=== PATIENT | male | born 1965 | race Caucasian/White ===

== ENCOUNTER → 2016-06-03 | Outpatient (REF) | payer MEDICARE, OTHER ==
[2016-06-03 19:06] LABS: ALBUMIN 4.5 GM/DL (3.2-5.2); ALBUMIN/GLOBULIN RATIO 1.29 (1.00-1.93); ALKALINE PHOSPHATASE 120 U/L (45-117); ALT/SGPT 17 U/L (12-78); ANION GAP 6 MEQ/L (8-16); AST/SGOT 20 U/L (15-37); BILIRUBIN,TOTAL 0.4 MG/DL (0.2-1.0); BLOOD UREA NITROGEN 14 MG/DL (7-18); CALCIUM LEVEL 9.6 MG/DL (8.5-10.1); CARBON DIOXIDE LEVEL 29 MEQ/L (21-32); CHLORIDE LEVEL 105 MEQ/L (98-107); CHOLESTEROL LEVEL 214 MG/DL (<200); CREATININE FOR GFR 1.27 MG/DL (0.70-1.30); GLOMERULAR FILTRATION RATE > 60.0 (>56); GLUCOSE, FASTING 95 MG/DL (70-105); POTASSIUM SERUM 4.6 MEQ/L (3.5-5.1); SODIUM LEVEL 140 MEQ/L (136-145); TRIGLYCERIDES LEVEL 88 MG/DL (<150)
[2016-06-07 08:06] LABS: CHLAMYDIA PHARYNGEAL APTIMA Negative (Negative); CHLAMYDIA RECTAL APTIMA Positive (Negative); GC PHARYNGEAL APTIMA Negative (Negative); GC RECTAL APTIMA Negative (Negative)
[2016-06-12 10:15] LABS: %CD3+CD4+CD8+ 1.6 % (Not Estab.); %CD3+CD4-CD8+ 37.8 % (Not Estab.); %CD3+CD4-CD8- 1.4 % (Not Estab.); ABS CD3+CD4+CD8+ 24 /uL (Not Estab.); ABS CD3+CD4+CD8- 285 /uL (Not Estab.); ABS CD3+CD4-CD8+ 567 /uL (Not Estab.); ABS CD3+CD4-CD8- 21 /uL (Not Estab.); Eosinophils 1 % (.); HCT 45.4 % (37.5-51.0); HGB 15.2 g/dL (12.6-17.7); Monocytes 10 % (.); Neutrophils 49 % (.); T PALLIDUM ANTIBODIES Positive (Negative); WBC 3.9 x10E3/uL (3.4-10.8)
== END ==
LOC: M SFHCPLAZ 11:24
PROVIDERS: ATTEND Internal Medicine Infectious Disease
DX: B20 Human immunodeficiency virus [HIV] disease (principal); Z11.3 Encounter for screening for infections with a predominantly sexual mode of transmission; E78.00 Pure hypercholesterolemia, unspecified; Z86.19 Personal history of other infectious and parasitic diseases

== ENCOUNTER 2017-05-25 18:23 | Emergency (ER) | payer SELFPAY, MEDICARE ==
[2017-05-25] MEDS: NS 1,000 ML IV ×2 (19:00→20:44)
[2017-05-25 19:07] LABS: BASO % 0.2 % (0.0-1.0); HEMOGLOBIN 13.7 g/dl (13.5-17.5); IMMATURE GRANULOCYTE % 1.1 % (0-3.0); LYMPH # 0.9 10^3/uL (1.5-4.5); MEAN CORPUSCULAR HEMOGLOBIN 33.3 pg (27.0-33.0); MEAN CORPUSCULAR HGB CONC 34.3 g/dl (32.0-36.5); MEAN CORPUSCULAR VOLUME 97.1 fl (80.0-96.0); MONO # 1.1 10^3/uL (0.0-0.8); MONO % 10.7 % (0.0-5.0); NEUTROPHILS # 7.9 10^3/uL (1.8-7.7); PLATELET COUNT, AUTOMATED 192 10^3/uL (150-450); RED BLOOD COUNT 4.12 10^6/uL (4.30-6.10); RED CELL DISTRIBUTION WIDTH 11.9 % (11.5-14.5); WHITE BLOOD COUNT 10.1 10^3/uL (4.0-10.0)
[2017-05-25] MEDS: ONDANSETRON 4MG/2ML VIAL (J2405) IV (19:11)
[2017-05-25 19:29] LABS: ALBUMIN 3.8 GM/DL (3.2-5.2); ALBUMIN/GLOBULIN RATIO 1.19 (1.00-1.93); ALKALINE PHOSPHATASE 84 U/L (45-117); ALT/SGPT 14 U/L (12-78); ANION GAP 8 MEQ/L (8-16); AST/SGOT 15 U/L (7-37); BILIRUBIN,TOTAL 0.6 MG/DL (0.2-1.0); BLOOD UREA NITROGEN 13 MG/DL (7-18); CALCIUM LEVEL 8.5 MG/DL (8.5-10.1); CARBON DIOXIDE LEVEL 25 MEQ/L (21-32); CHLORIDE LEVEL 104 MEQ/L (98-107); GLOMERULAR FILTRATION RATE 52.5 (>56); GLUCOSE, FASTING 176 MG/DL (70-100); POTASSIUM SERUM 3.5 MEQ/L (3.5-5.1); SODIUM LEVEL 137 MEQ/L (136-145)
[2017-05-25] MEDS ORDERED: MORPHINE 10 MG/ML 1ML VIAL (J2270) IM (19:45)
[2017-05-25] MEDS: MORPHINE 4 MG/ML 1ML VIAL (J2270) IV (19:52)
[2017-05-25] MEDS: ACETAMINOPHEN 325 MG TAB PO (20:30)
[2017-05-25] MEDS: CYCLOBENZAPRINE 10 MG TAB PO (22:43)
== END 2017-05-25 23:13 | disposition home or self-care (01) ==
LOC: M ED 18:23
DX: M54.5 Low back pain (principal); R11.2 Nausea with vomiting, unspecified; R19.7 Diarrhea, unspecified; B20 Human immunodeficiency virus [HIV] disease
CPT/HCPCS: J2270

== ENCOUNTER → 2017-12-01 | Outpatient (REF) | payer MEDICARE, SELFPAY ==
[2017-12-01 14:12] LABS: APPEARANCE, URINE CLEAR (CLEAR); BACTERIA, URINE AUTO NEGATIVE (NEGATIVE); BILIRUBIN, URINE AUTO NEGATIVE (NEGATIVE); BLOOD, URINE BLOOD NEGATIVE (NEGATIVE); COLOR, URINE STRAW (YELLOW); GLUCOSE, URINE (UA) AUTO NEGATIVE (NEGATIVE); KETONE, URINE AUTO NEGATIVE (NEGATIVE); LEUKOCYTE ESTERASE, URINE AUTO NEGATIVE (NEGATIVE); NITRITE, URINE AUTO NEGATIVE (NEGATIVE); PROTEIN, URINE AUTO NEGATIVE (NEGATIVE); RBC, URINE AUTO 0 /HPF (0-3); SPECIFIC GRAVITY URINE AUTO 1.005 (1.002-1.035); SQUAMOUS EPITHELIAL CELL UR AU 0 /HPF (0-6); UROBILINOGEN, URINE AUTO 0.2 mg/dL (0.0-2.0); WBC, URINE AUTO 0 /HPF (0-3)
[2017-12-01 14:43] LABS: ALBUMIN 4.3 GM/DL (3.2-5.2); ALBUMIN/GLOBULIN RATIO 1.34 (1.00-1.93); ALKALINE PHOSPHATASE 88 U/L (45-117); ALT/SGPT 26 U/L (12-78); ANION GAP 7 MEQ/L (8-16); AST/SGOT 20 U/L (7-37); BILIRUBIN,TOTAL 0.5 MG/DL (0.2-1.0); BLOOD UREA NITROGEN 15 MG/DL (7-18); CALCIUM LEVEL 9.4 MG/DL (8.5-10.1); CARBON DIOXIDE LEVEL 28 MEQ/L (21-32); CHLORIDE LEVEL 106 MEQ/L (98-107); CHOLESTEROL LEVEL 222 MG/DL (<200); CHOLESTEROL RISK RATIO 4.625 (<5); CREATININE FOR GFR 1.48 MG/DL (0.70-1.30); GLOMERULAR FILTRATION RATE 53.1 (>56); GLUCOSE, FASTING 87 MG/DL (70-100); HDL CHOLESTEROL 48 MG/DL (>40); LDL CHOLESTEROL 148 MG/DL (<100); NON-HDL-C 174 MG/DL; POTASSIUM SERUM 4.6 MEQ/L (3.5-5.1); SODIUM LEVEL 141 MEQ/L (136-145); TOTAL PROTEIN 7.5 GM/DL (6.4-8.2); TRIGLYCERIDES LEVEL 132 MG/DL (<150)
[2017-12-01 15:31] LABS: HEPATITIS C VIRUS ABY INDEX < 0.0 INDEX (<0.8)
[2017-12-01 15:34] LABS: CHLAMYDIA DNA AMPLIFICATION NEGATIVE (NEGATIVE); GC DNA AMPLIFICATION NEGATIVE (NEGATIVE)
[2017-12-04 00:07] LABS: % CD8 Pos Lymph 42.7 % (12.0-35.5); %CD4 Pos Lymphs 19.2 % (30.8-58.5); ABS Eosinophils 0.1 x10E3/uL (0.0-0.4); ABS Lymphs 1.3 x10E3/uL (0.7-3.1); ABS Monocytes 0.3 x10E3/uL (0.1-0.9); Abs CD4 Helper 250 /uL (359-1519); Abs CD8 Suppres 555 /uL (109-897); CD4/CD8 Ratio 0.45 (0.92-3.72); CHLAMYDIA PHARYNGEAL APTIMA Negative (Negative); Eosinophils 2 % (Not Estab.); GC PHARYNGEAL APTIMA Negative (Negative); HCT 41.2 % (37.5-51.0); HGB 14.3 g/dL (13.0-17.7); HIV-1 RNA PCR QUANT 2 LC550285 <20 copies/mL (.); Immature Grans 0 % (Not Estab.); Lymphocytes 36 % (Not Estab.); MCH 32.9 pg (26.6-33.0); MCHC 34.7 g/dL (31.5-35.7); MCV 95 fL (79-97); Monocytes 9 % (Not Estab.); Neutrophils 53 % (Not Estab.); Platelets 236 x10E3/uL (150-379); RBC 4.35 x10E6/uL (4.14-5.80); RPR Reactive (Non Reactive); TREPONEMA PALLIDUM ANTIBODIES Positive (Negative); WBC 3.7 x10E3/uL (3.4-10.8)
[2017-12-06 08:42] LABS: QUANTIFERON GOLD TB Negative (Negative); TB Test (QFT) Antigen 0.17 IU/mL (.); TB Test (QFT) Antigen Minus Ni <0.00 IU/mL (.); TB Test (QFT) Mitogen 6.93 IU/mL (.); TB Test (QFT) Nil 0.21 IU/mL (.)
== END ==
LOC: M SFHCPLAZ 11:53
DX: B20 Human immunodeficiency virus [HIV] disease (principal); E78.00 Pure hypercholesterolemia, unspecified; Z86.19 Personal history of other infectious and parasitic diseases; K62.82 Dysplasia of anus; Z79.899 Other long term (current) drug therapy; Z23 Encounter for immunization; Z11.3 Encounter for screening for infections with a predominantly sexual mode of transmission
CPT/HCPCS: 80053

== ENCOUNTER 2018-04-11 11:38 | Inpatient (IN) | payer SELFPAY ==
[~2018-04-11] VITALS: Ht 180.3 cm; Wt 77.1 kg
[~2018-04-11 11:38] MED LIST: ACET25TA12 PO; CYCL10TA PO; GENV1TAB PO; PERC5TAB12 PO; ZOFR4TAB14 PO
[2018-04-11] MEDS ORDERED: IBUP-1022 PO (11:47)
[2018-04-11 12:32] LABS: BASO % 0.2 % (0.0-1.0); EOS % 0.2 % (0.0-3.0); HEMATOCRIT 37.7 % (42.0-52.0); HEMOGLOBIN 12.5 g/dl (13.5-17.5); LYMPH # 1.3 10^3/uL (1.5-4.5); MEAN CORPUSCULAR HEMOGLOBIN 33.3 pg (27.0-33.0); MEAN CORPUSCULAR HGB CONC 33.2 g/dl (32.0-36.5); MEAN CORPUSCULAR VOLUME 100.5 fl (80.0-96.0); MONO # 0.8 10^3/uL (0.0-0.8); MONO % 8.6 % (0.0-5.0); NEUTROPHILS # 6.9 10^3/uL (1.8-7.7); NEUTROPHILS % 76.6 % (36.0-66.0); PLATELET COUNT, AUTOMATED 241 10^3/uL (150-450); RED BLOOD COUNT 3.75 10^6/uL (4.30-6.10)
[2018-04-11 12:47] LABS: INR 1.05; PROTHROMBIN TIME 13.8 SECONDS (12.1-14.4)
[2018-04-11 12:48] LABS: PARTIAL THROMBOPLASTIN TIME 36.7 SECONDS (25.4-37.6)
[2018-04-11 13:14] LABS: ALBUMIN 3.2 GM/DL (3.2-5.2); ALT/SGPT 30 U/L (12-78); BILIRUBIN,DIRECT 0.2 MG/DL (0.0-0.2); BILIRUBIN,TOTAL 0.5 MG/DL (0.2-1.0); BLOOD UREA NITROGEN 10 MG/DL (7-18); CALCIUM LEVEL 8.4 MG/DL (8.5-10.1); CARBON DIOXIDE LEVEL 27 MEQ/L (21-32); CHLORIDE LEVEL 102 MEQ/L (98-107); CK-MB VALUE MASS < 1.0 NG/ML (<3.6); CPK CREATINE PHOSPHOKINASE 27 U/L (39-308); CREATININE FOR GFR 1.36 MG/DL (0.70-1.30); FREE T4 0.92 NG/DL (0.76-1.46); GLOMERULAR FILTRATION RATE 58.6 (>56); GLUCOSE, FASTING 106 MG/DL (70-100); POTASSIUM SERUM 4.4 MEQ/L (3.5-5.1); SODIUM LEVEL 135 MEQ/L (136-145); THYROID STIMULATING HORMONE 0.622 uIU/ML (0.358-3.740); TOTAL PROTEIN 7.3 GM/DL (6.4-8.2); TROPONIN I < 0.02 NG/ML (< 0.10)
[2018-04-11] MEDS ORDERED: NS 1,000 ML IV SCH (13:15)
[2018-04-11] MEDS ORDERED: ACETAMINOPHEN TAB 650MG DOSE (2X325MG) PO ONE (13:15)
[2018-04-11 13:25] LABS: MONO SCRN NEGATIVE (NEGATIVE)
[2018-04-11] MEDS ORDERED: ONDANSETRON 4MG/2ML VIAL (J2405) IV ONE (13:30)
[2018-04-11] MEDS: GASTROGRAFIN SOLUTION 30ML PO SCH ×2 (13:30→14:00)
[2018-04-11 13:33] LABS: LIPASE 210 U/L (73-393)
[2018-04-11 14:25] LABS: INFLUENZA A AMPLIFICATION NEGATIVE (NEGATIVE); INFLUENZA B AMPLIFICATION NEGATIVE (NEGATIVE)
[2018-04-11] MEDS ORDERED: ISOVUE-370 76% 100ML VIAL (Q9967) As Ordered ONE (14:41)
[2018-04-11] MEDS ORDERED: METOCLOPRAMIDE INJ 10MG/2ML VIAL (J2765) IV ONE (17:00)
[2018-04-11] MEDS ORDERED: CIPROFLOXACIN 400 MG in APPROPRIATE DILUENT 1 EA IV ONE (17:30)
[2018-04-11] MEDS ORDERED: metroNIDAZOLE 500 MG in APPROPRIATE DILUENT 1 EA IV ONE (17:30)
[2018-04-11] MEDS ORDERED: ONDANSETRON 4MG/2ML VIAL (J2405) IV PRN (18:15)
--- NOTE | 2018-04-11 20:05 | HPE ---
DATE OF ADMISSION: 04/11/2018 This is a 52-year-old male with a past medical history of HIV diagnosed in 2005, history of Kaposi sarcoma, who presents to the emergency room with left upper quadrant and right lower quadrant abdominal pain for approximately 2 weeks. No associated diarrhea but he did have nausea with no vomiting. He has never had similar symptoms in the past. He does have HIV and his last CD4 was in November and was 600, followed by Dr. Lozano. In the emergency room, the patient was given IV Zofran and had a CT of the abdomen and pelvis done, which showed right colonic and transverse colonic colitis. He was started on IV Cipro and IV Flagyl. He will be admitted for further management. He denies any subjective feeling of fever, aches or chills. PAST MEDICAL HISTORY: 1. HIV diagnosed in 2005. 2. History of Kaposi sarcoma. 3. Chronic kidney disease stage IIIA with baseline creatinine of 1.4. ALLERGIES: He has no known drug allergies. FAMILY HISTORY: Noncontributory. SOCIAL HISTORY: The patient denies tobacco, alcohol or illicit drugs. MEDICATIONS: He takes at home: - ibuprofen 600 mg by mouth three times a day as needed - Genvoya one tablet by mouth daily REVIEW OF SYSTEMS: Negative for all ten major systems except what is mentioned in the history of present illness. VITAL SIGNS: Blood pressure 121/79, heart rate is 100 and regular, respiratory rate 14, temperature 99.6, oxygen saturation 95% on room air. Head is atraumatic, normocephalic. Neck is supple with no jugular venous distention (JVD). Lungs are clear to auscultation. S1, S2 audible. No murmurs appreciated. Abdomen has positive tenderness and guarding in the right upper quadrant and left lower quadrant. No rebound. Positive bowel sounds. No pedal edema. Skin is intact. Neurologic examination, the patient is awake, alert and oriented times three. LABORATORIES: Sodium 135, potassium 4.4, chloride 102, CO2 of 27, anion gap 6, BUN 10, creatinine 1.36, glucose 106, calcium 8.4, lipase 210, TSH 0.622. Urinalysis is negative for urinary tract infection (UTI). Influenza A and B screens negative. IMPRESSION: 1. Acute colitis. PLAN: The patient is admitted to the medical/surgical floor. We will start him on a clear liquid diet and continue IV Zofran 4 mg every 6 hours as needed and morphine 2 mg IV every 6 hours as needed for symptomatic relief. I will continue IV Ciprofloxacin 400 mg IV every 12 hours and Flagyl 500 mg IV every 8 hours. The patient can continue his Genvoya as prescribed from home. We will continue his care in the medical/surgical floor.
[2018-04-11] MEDS: NS 1,000 ML IV SCH (20:12)
[2018-04-11] MEDS: IBUPROFEN 600 MG TAB PO PRN (20:13)
[2018-04-11 20:58] VITALS: BP 129/73
[2018-04-11] MEDS: MORPHINE 4 MG/ML 1ML VIAL/SYRINGE (J2270) IV PRN (22:56)
[2018-04-12] MEDS: metroNIDAZOLE 500 MG in APPROPRIATE DILUENT 1 EA IV SCH ×3 (02:09→17:39)
[2018-04-12 04:04] VITALS: BP 101/63
[2018-04-12] MEDS: NS 1,000 ML IV SCH ×2 (04:11→10:10)
--- NOTE | 2018-04-12 07:40 | REP ---
CT ANGIOGRAM CHEST: 04/11/2018 COMPARISON: CT chest 09/23/2007. CLINICAL HISTORY: Chest pain, cough, sinus tachycardia, recent travel. Evaluate for pulmonary emboli. Past history Kaposi's sarcoma. TECHNIQUE: Patient received bolus of 100 mL Isovue 370, scanning through the chest with CT angiogram protocol and both coronal and sagittal thick-slab MIP and standard reformats. FINDINGS: Heart size not enlarged. There is no pericardial thickening or effusion. The aorta is without aneurysm or dissection. The main, right, and left pulmonary arteries are without filling defects in the mediastinum. The lobar, segmental and visible subsegmental arteries are without filling defects or vessel cutoff to suggest pulmonary emboli. There is no pathologic-sized mediastinal or hilar adenopathy. There is a 10 mm nodular focus in the posterior segment of the left upper lobe on image 32, and this is only minimally changed from the previous study where it was 11.5 mm. Some underlying interstitial fibrotic changes are seen. Heavier fibrotic changes are noted in the bases with new superimposed bibasilar deep sulcus patchy areas of atelectasis or infiltrates. No pleural effusion, pleural-based mass, focal pleural thickening, or calcified plaque. Bone windows show the sternum, manubrium, medial clavicles, AC joints, glenohumeral joints, humeral heads, scapulae, and ribs grossly intact. The spine shows no fracture or compression deformity nor any destructive lesion. Minimal spurring anteriorly midthoracic region. IMPRESSION: 1. No CT evidence of pulmonary thromboembolism. No aortic aneurysm, dissection, mediastinal or hilar adenopathy, or mass. 2. New patchy atelectasis or infiltrate bilaterally in the lower lung zones particularly in the deep sulci without air bronchograms or pleural effusion. This is superimposed on some minor fibrotic changes, and there is a 10 mm nodule in the posterior segment left upper lobe which is seen on the previous study in 2008 at about 11.5 mm. No other new or acute finding in the lungs. 3. No acute bony finding. No axillary or supraclavicular adenopathy or mass. Electronically Signed by Adolph Resendez MD 04/12/2018 08:22 A
--- NOTE | 2018-04-12 07:45 | REP ---
CT ABDOMEN/PELVIS WITH IV AND ORAL CONTRAST: 04/11/2018. CLINICAL HISTORY: Abdominal pain. Prior history of Kaposi's sarcoma. COMPARISON: 09/23/2007 CT. TECHNIQUE: Oral Gastrografin mixture 10 mL in 290 mL flavored water for two doses per our bowel contrast protocol and a bolus of 100 mL Isovue 370, then scanning through the abdomen and pelvis. Coronal and sagittal reconstructions were provided. FINDINGS: CT ABDOMEN. No hiatal hernia. Stomach filled with retained contrast. I see no hepatosplenomegaly, focal hepatic mass, or intrahepatic biliary dilatation. Gallbladder partially contracted and without calcified stone or mass. Pancreas without mass, ductal dilatation, or inflammatory change, and the adrenal glands are normal. Kidneys without hydronephrosis, stone, mass, or cyst. Spleen is without focal lesion. No ascites upper abdomen. Lung window review of all CT slices shows no perforation or abscess. Slight distension of proximal jejunal loops in the upper abdomen. There is some thickening of wall of mid jejunal loops and some infiltration of fat about the transverse colon. There is thickening of wall of the right, transverse colon, and hepatic flexure suggesting colitis. Moderate stool in the left colon to rectosigmoid distending them. No diverticulosis or diverticulitis suggested. A short appendix is suggested off the posterior-medial aspect of the distal cecal tip. The ileum shows no dilatation, wall thickening, or air-fluid levels. Terminal ilium unremarkable. Lung window review of all CT slices shows no perforation or free air. Bone windows show degenerative disc changes and narrowing at L5-S1 with vacuum phenomena at L4-5, a few millimeters of retrolisthesis of L4 on 5, while the other disc space and all vertebral body heights are intact in the lumbar and lower thoracic spine. Posterior elements preserved. Visualized ribs intact. CT PELVIS: Sacrum, SI joints, pelvis, hips, and ischia show no fracture or focal lesion. There is no distal ureteral dilatation or stone and no bladder stone. No ventral or inguinal hernia nor pathologic sized inguinal adenopathy. IMPRESSION: 1. Evidence of colitis involving the right and transverse colon with thickening of bowel wall and mild inflammatory changes in the fat. A caliber change just below the splenic flexure with the left colon to rectosigmoid distended with stool. No diverticulosis or diverticulitis. No mass or stricture. 2. Some small bowel loops in the proximal jejunum with thickened aquino and minor adjacent inflammatory changes and reflect some nonspecific enteritis. Proximal to these loops, there is mild distension of small bowel loops. 3. Gallbladder contracted without calcified stone or mass. The liver, spleen, adrenal glands, kidneys, and pancreas unremarkable. 4. No abdominal or pelvic adenopathy. No acute bony finding. No renal, ureteral, or bladder stone. Electronically Signed by Adolph Resendez MD 04/12/2018 08:22 A
[2018-04-12 07:46] LABS: BASO % 0.2 % (0.0-1.0); EOS # 0.1 10^3/uL (0.0-0.50); EOS % 1.9 % (0.0-3.0); HEMATOCRIT 34.5 % (42.0-52.0); HEMOGLOBIN 11.2 g/dl (13.5-17.5); LYMPH # 0.7 10^3/uL (1.5-4.5); LYMPH % 12.3 % (24.0-44.0); MEAN CORPUSCULAR HEMOGLOBIN 33.1 pg (27.0-33.0); MEAN CORPUSCULAR HGB CONC 32.5 g/dl (32.0-36.5); MEAN CORPUSCULAR VOLUME 102.1 fl (80.0-96.0); MONO # 0.7 10^3/uL (0.0-0.8); MONO % 11.8 % (0.0-5.0); NEUTROPHILS # 4.2 10^3/uL (1.8-7.7); NEUTROPHILS % 73.3 % (36.0-66.0); PLATELET COUNT, AUTOMATED 186 10^3/uL (150-450); RED BLOOD COUNT 3.38 10^6/uL (4.30-6.10); WHITE BLOOD COUNT 5.8 10^3/uL (4.0-10.0)
[2018-04-12 08:00] VITALS: BP 119/71
[2018-04-12 08:03] LABS: BLOOD UREA NITROGEN 11 MG/DL (7-18); CALCIUM LEVEL 8.1 MG/DL (8.5-10.1); CARBON DIOXIDE LEVEL 28 MEQ/L (21-32); CHLORIDE LEVEL 107 MEQ/L (98-107); CREATININE FOR GFR 1.04 MG/DL (0.70-1.30); GLOMERULAR FILTRATION RATE > 60.0 (>56); GLUCOSE, FASTING 103 MG/DL (70-100); POTASSIUM SERUM 4.2 MEQ/L (3.5-5.1); SODIUM LEVEL 140 MEQ/L (136-145)
[2018-04-12] MEDS: CIPROFLOXACIN 400 MG in APPROPRIATE DILUENT 1 EA IV SCH ×2 (08:52→19:42)
[2018-04-12] MEDS: MORPHINE 4 MG/ML 1ML VIAL/SYRINGE (J2270) IV PRN ×3 (09:01→19:42)
[2018-04-12] MEDS: IBUPROFEN 600 MG TAB PO PRN (09:02)
[2018-04-12 14:00] VITALS: BP 133/84
--- NOTE | 2018-04-12 16:24 | ECGEPIP ---
Stationary ECG Study [facility] - ED Test Date: 2018-04-11 Pat Name: SHANTE KATZ Department: Room: [place] [address] Gender: M Digital Media Director: NITO : 1965 Requested By: FELIX Borges Order Number: [id number] Reading MD: Maura Gibbs Measurements Intervals Tolar Rate: 102 P: 18 OR: 149 QRS: 46 QRSD: 88 T: 50 QT: 314 QTc: 410 Interpretive Statements SINUS TACHYCARDIA ABNORMAL RHYTHM ECG NO PRIOR FOR COMPARISON Electronically Signed On 04-12-2018 16:24:36 EST by Maura Gibbs
[2018-04-12] MEDS: GENVOYA PO SCH (17:39)
[2018-04-12 20:00] VITALS: BP 131/86
--- NOTE | 2018-04-12 23:31 | IPNPDOC ---
Text Note Date of Service The patient was seen on 04/12/18. NOTE SUBJECTIVE: continues to have abdominal soreness extending from the right to left along the upper abdomen. the right lower quadrant is also painful. No diarrhea, complains of feeling generalized unwell, maliase, has been unable to eat food since . Able to tolerate clear liquids, no vomiting. Is requiring morphine. Had a temp of 101.9 on admission. PHYSICAL EXAM: VITAL SIGNS: As below General: awake alert oriented x 3 sitting up in bed in no acute distress. HEENT: Head is atraumatic, normocephalic. Neck is supple with no jugular venous distention (JVD). Lungs: clear to auscultation. Heart: S1, S2 audible. No murmurs appreciated.No rub or gallop Abdomen: positive tenderness in the right upper quadrant , epigastrium and left upper quadrant and right lower quadrant. Rebound tenderness present. Guarding in the RUQ. Positive bowel sounds. Extremities: No pedal edema. Skin is intact. Neurologic examination: no focal neurodeficits. LABS and RADIOLOGY: reviewed ASSESSMENT and PLAN: This is a 52-year-old male with a past medical history of HIV/AIDS diagnosed in 2005 CD4 < 20, history of Disseminated Kaposi sarcoma s/p chemotherapy, oral Kaposi's sarcoma s/p RT, h/o shingles left sciatic nerve distribution, Esophageal reflux, Secondary syphilis, CKD who presents to the emergency room with severe abdominal pain, bilateral flank pain , unable to eat and generalized malaise. He has been sick for 2 weeks. He was recently hospitalized in [place] 12 days ago for 1 day for fever, cough, malaise, bodyaches, abdominal pain, nausea daignosed with pneumonia and given antibiotics. He signed out AMA after 1 day as his father wanted to bring him up here where all his family is. He was given cefdinir and bactrim ds for 5 days for pneumonia. He felt better after that for a week he did not have any complaints then the abdominal pain came back 4 days ago. No associated diarrhea but he did have nausea with no vomiting. He has never had similar symptoms in the past. His last CD4 was in November and was 600, followed by Dr. Lozano. In the emergency room, the patient was given IV Zofran and had a CT of the abdomen and pelvis done, which showed right colonic and transverse colonic colitis. He was started on IV Cipro and IV Flagyl. He was admitted for further management. Acute Colitis continue cipro and flagyl continue IVF HIV continue own medication CKD stage 3 creatinine at baseline continue to monitor. DVT prophylaxis ordered. VS,Fishbone, I+O VS, Fishbone, I+O Laboratory Tests 04/11/18 12:14 Red Blood Count 3.75 L, Mean Corpuscular Volume 100.5 H, Mean Corpuscular Hemoglobin 33.3 H, Mean Corpuscular Hemoglobin Concent 33.2, Red Cell Distribution Width 13.2, Neutrophils (%) (Auto) 76.6 H, Lymphocytes (%) (Auto) 14.0 L, Monocytes (%) (Auto) 8.6 H, Eosinophils (%) (Auto) 0.2, Basophils (%) (Auto) 0.2, Neutrophils # (Auto) 6.9, Lymphocytes # (Auto) 1.3 L, Monocytes # (Auto) 0.8, Eosinophils # (Auto) 0.0, Basophils # (Auto) 0.0 Vital Signs Date Time Temp Pulse Resp B/P (MAP) Pulse Ox O2 Delivery O2 Flow Rate FiO2 04/11/18 23:06 18 04/11/18 20:58 98.9 80 129/73 (91) 96 04/11/18 20:15 Room Air I&O- Last 24 Hours up to 6 AM 04/12/18 06:00 Intake Total 1360 ml Output Total 650 ml Balance 710 ml MUKUND GOLDSMITH MD Apr 12, 2018 02:33
[2018-04-13] MEDS: MORPHINE 4 MG/ML 1ML VIAL/SYRINGE (J2270) IV PRN ×3 (00:09→09:25)
[2018-04-13] MEDS: NS 1,000 ML IV SCH ×3 (00:09→13:10)
[2018-04-13] MEDS: metroNIDAZOLE 500 MG in APPROPRIATE DILUENT 1 EA IV SCH ×3 (02:14→18:10)
[2018-04-13 04:00] VITALS: BP 117/71
[2018-04-13 07:05] LABS: BASO % 0.3 % (0.0-1.0); EOS # 0.3 10^3/uL (0.0-0.50); EOS % 6.9 % (0.0-3.0); HEMATOCRIT 31.8 % (42.0-52.0); HEMOGLOBIN 10.5 g/dl (13.5-17.5); LYMPH # 1.2 10^3/uL (1.5-4.5); LYMPH % 29.2 % (24.0-44.0); MEAN CORPUSCULAR HEMOGLOBIN 33.1 pg (27.0-33.0); MEAN CORPUSCULAR VOLUME 100.3 fl (80.0-96.0); MONO # 0.5 10^3/uL (0.0-0.8); MONO % 12.2 % (0.0-5.0); NEUTROPHILS % 51.1 % (36.0-66.0); PLATELET COUNT, AUTOMATED 191 10^3/uL (150-450); RED BLOOD COUNT 3.17 10^6/uL (4.30-6.10); WHITE BLOOD COUNT 3.9 10^3/uL (4.0-10.0)
[2018-04-13 07:29] LABS: BLOOD UREA NITROGEN 7 MG/DL (7-18); CALCIUM LEVEL 7.9 MG/DL (8.5-10.1); CARBON DIOXIDE LEVEL 27 MEQ/L (21-32); CHLORIDE LEVEL 107 MEQ/L (98-107); CREATININE FOR GFR 1.05 MG/DL (0.70-1.30); GLOMERULAR FILTRATION RATE > 60.0 (>56); GLUCOSE, FASTING 93 MG/DL (70-100); POTASSIUM SERUM 3.9 MEQ/L (3.5-5.1); SODIUM LEVEL 139 MEQ/L (136-145)
[2018-04-13] MEDS: CIPROFLOXACIN 400 MG in APPROPRIATE DILUENT 1 EA IV SCH ×2 (08:20→20:25)
[2018-04-13 14:00] VITALS: BP 125/83
[2018-04-13] MEDS: IBUPROFEN 600 MG TAB PO PRN ×2 (14:06→21:29)
[2018-04-13] MEDS: GENVOYA PO SCH (18:10)
[2018-04-13 20:00] VITALS: BP 122/73
--- NOTE | 2018-04-13 23:21 | IPNPDOC ---
Text Note Date of Service The patient was seen on 04/13/18. NOTE SUBJECTIVE: continues to have abdominal soreness extending from the right to left along the upper abdomen. the right lower quadrant is also painful. No diarrhea, complains of feeling generalized unwell, maliase, has been unable to eat food since . Able to tolerate clear liquids, no vomiting. Is requiring morphine. Had a temp of 101.9 on admission. PHYSICAL EXAM: VITAL SIGNS: As below General: awake alert oriented x 3 sitting up in bed in no acute distress. HEENT: Head is atraumatic, normocephalic. Neck is supple with no jugular venous distention (JVD). Lungs: clear to auscultation. Heart: S1, S2 audible. No murmurs appreciated.No rub or gallop Abdomen: positive tenderness in the right upper quadrant , epigastrium and left upper quadrant and right lower quadrant. Rebound tenderness present. Guarding in the RUQ. Positive bowel sounds. Extremities: No pedal edema. Skin is intact. Neurologic examination: no focal neurodeficits. LABS and RADIOLOGY: reviewed ASSESSMENT and PLAN: This is a 52-year-old male with a past medical history of HIV/AIDS diagnosed in 2005 CD4 < 20, history of Disseminated Kaposi sarcoma s/p chemotherapy, oral Kaposi's sarcoma s/p RT, h/o shingles left sciatic nerve distribution, Esophageal reflux, Secondary syphilis, CKD who presents to the emergency room with severe abdominal pain, bilateral flank pain , unable to eat and generalized malaise. He has been sick for 2 weeks. He was recently hospitalized in [place] 12 days ago for 1 day for fever, cough, malaise, bodyaches, abdominal pain, nausea daignosed with pneumonia and given antibiotics. He signed out AMA after 1 day as his father wanted to bring him up here where all his family is. He was given cefdinir and bactrim ds for 5 days for pneumonia. He felt better after that for a week he did not have any complaints then the abdominal pain came back 4 days ago. No associated diarrhea but he did have nausea with no vomiting. He has never had similar symptoms in the past. His last CD4 was in November and was 600, followed by Dr. Lozano. In the emergency room, the patient was given IV Zofran and had a CT of the abdomen and pelvis done, which showed right colonic and transverse colonic colitis. He was started on IV Cipro and IV Flagyl. He was admitted for further management. Acute Colitis continue cipro and flagyl continue IVF HIV continue own medication CKD stage 3 creatinine at baseline continue to monitor. DVT prophylaxis ordered. VS,Fishbone, I+O VS, Fishbone, I+O Laboratory Tests 04/13/18 06:49 Red Blood Count 3.17 L, Mean Corpuscular Volume 100.3 H, Mean Corpuscular Hemoglobin 33.1 H, Mean Corpuscular Hemoglobin Concent 33.0, Red Cell Distribution Width 12.9, Neutrophils (%) (Auto) 51.1, Lymphocytes (%) (Auto) 29.2, Monocytes (%) (Auto) 12.2 H, Eosinophils (%) (Auto) 6.9 H, Basophils (%) (Auto) 0.3, Neutrophils # (Auto) 2.0, Lymphocytes # (Auto) 1.2 L, Monocytes # (Auto) 0.5, Eosinophils # (Auto) 0.3, Basophils # (Auto) 0.0, Calcium Level 7.9 L Vital Signs Date Time Temp Pulse Resp B/P (MAP) Pulse Ox O2 Delivery O2 Flow Rate FiO2 04/13/18 14:00 98.2 78 15 125/83 (97) 98 04/11/18 20:15 Room Air I&O- Last 24 Hours up to 6 AM 04/13/18 06:00 Intake Total 2360 ml Output Total 0 ml Balance 2360 ml MUKUND GOLDSMITH MD Apr 13, 2018 23:21
[2018-04-14] MEDS: metroNIDAZOLE 500 MG in APPROPRIATE DILUENT 1 EA IV SCH ×2 (01:09→10:59)
[2018-04-14] MEDS: NS 1,000 ML IV SCH (01:09)
[2018-04-14 07:31] LABS: BASO % 0.8 % (0.0-1.0); EOS # 0.4 10^3/uL (0.0-0.50); EOS % 16.2 % (0.0-3.0); HEMATOCRIT 32.8 % (42.0-52.0); HEMOGLOBIN 10.8 g/dl (13.5-17.5); LYMPH # 0.8 10^3/uL (1.5-4.5); LYMPH % 32.4 % (24.0-44.0); MEAN CORPUSCULAR HEMOGLOBIN 32.9 pg (27.0-33.0); MEAN CORPUSCULAR HGB CONC 32.9 g/dl (32.0-36.5); MONO # 0.3 10^3/uL (0.0-0.8); MONO % 13.4 % (0.0-5.0); NEUTROPHILS % 36.8 % (36.0-66.0); PLATELET COUNT, AUTOMATED 191 10^3/uL (150-450); RED BLOOD COUNT 3.28 10^6/uL (4.30-6.10); WHITE BLOOD COUNT 2.5 10^3/uL (4.0-10.0)
[2018-04-14 07:52] LABS: BLOOD UREA NITROGEN 8 MG/DL (7-18); CALCIUM LEVEL 8.4 MG/DL (8.5-10.1); CARBON DIOXIDE LEVEL 25 MEQ/L (21-32); CHLORIDE LEVEL 110 MEQ/L (98-107); CREATININE FOR GFR 1.05 MG/DL (0.70-1.30); GLOMERULAR FILTRATION RATE > 60.0 (>56); GLUCOSE, FASTING 105 MG/DL (70-100); POTASSIUM SERUM 3.7 MEQ/L (3.5-5.1); SODIUM LEVEL 141 MEQ/L (136-145)
[2018-04-14 08:15] LABS: NEUTROPHILS # 0.9 10^3/uL (1.8-7.7)
[2018-04-14] MEDS: CIPROFLOXACIN 400 MG in APPROPRIATE DILUENT 1 EA IV SCH (08:38)
[2018-04-14] MEDS: IBUPROFEN 600 MG TAB PO PRN (08:40)
--- NOTE | 2018-04-14 09:58 | IPNPDOC ---
Date Seen The patient was seen on 04/14/18. Progress Note SUBJECTIVE: no diarrhea no abd pain nausea of vomiting. tolerating liquid diet, anxious to go home, but c/o headache in the occiput. no c/o blurred vision,diplopia, aura, or weakness. on ivfluids. PHYSICAL EXAM: VITAL SIGNS: As below General: awake alert oriented x 3 sitting up in bed in no acute distress. HEENT: Head is atraumatic, normocephalic. Neck is supple with no jugular venous distention (JVD). Lungs: clear to auscultation. Heart: S1, S2 audible. No murmurs appreciated.No rub or gallop Abdomen: positive tenderness in the right upper quadrant , epigastrium and left upper quadrant and right lower quadrant. Rebound tenderness present. Guarding in the RUQ. Positive bowel sounds. Extremities: No pedal edema. Skin is intact. Neurologic examination: no focal neurodeficits. LABS and RADIOLOGY: reviewed ASSESSMENT and PLAN: This is a 52-year-old male with a past medical history of HIV/AIDS diagnosed in 2005 CD4 < 20, history of Disseminated Kaposi sarcoma s/p chemotherapy, oral Kaposi's sarcoma s/p RT, h/o shingles left sciatic nerve distribution, Esophageal reflux, Secondary syphilis, CKD who presents to the emergency room with severe abdominal pain, bilateral flank pain , unable to eat and generalized malaise. He has been sick for 2 weeks. He was recently hospitalized in [place] 12 days ago for 1 day for fever, cough, malaise, bodyaches, abdominal pain, nausea daignosed with pneumonia and given antibiotics. He signed out AMA after 1 day as his father wanted to bring him up here where all his family is. He was given cefdinir and bactrim ds for 5 days for pneumonia. He felt better after that for a week he did not have any complaints then the abdominal pain came back 4 days ago. No associated diarrhea but he did have nausea with no vomiting. He has never had similar symptoms in the past. His last CD4 was in November and was 600, followed by Dr. Lozano. In the emergency room, the patient was given IV Zofran and had a CT of the abdomen and pelvis done, which showed right colonic and transverse colonic colitis. He was started on IV Cipro and IV Flagyl. He was admitted for further management. Acute Colitis continue cipro and flagyl continue IVF advance to low residue diet Headache trial of nsaids and iv reglan HIV continue own medication CKD stage 3 creatinine at baseline continue to monitor. DVT prophylaxis ordered. disposition: dc home today or in am pending tolerance of solid diet. VS, I&O, 24H, Fishbone Vital Signs/I&O Vital Signs Date Time Temp Pulse Resp B/P (MAP) Pulse Ox O2 Delivery O2 Flow Rate FiO2 04/13/18 20:00 98.2 79 18 122/73 (89) 97 04/11/18 20:15 Room Air I&O- Last 24 Hours up to 6 AM 04/14/18 06:00 Intake Total 3520 ml Output Total 0 ml Balance 3520 ml Laboratory Data 24H LABS Laboratory Tests 2 04/14/18 07:18: Immature Granulocyte % (Auto) 0.4, White Blood Count 2.5L, Red Blood Count 3.28L, Hemoglobin 10.8L, Hematocrit 32.8L, Mean Corpuscular Volume 100.0H, Mean Corpuscular Hemoglobin 32.9, Mean Corpuscular Hemoglobin Concent 32.9, Red Cell Distribution Width 12.8, Platelet Count 191, Neutrophils (%) (Auto) 36.8, Lymphocytes (%) (Auto) 32.4, Monocytes (%) (Auto) 13.4H, Eosinophils (%) (Auto) 16.2H, Basophils (%) (Auto) 0.8, Neutrophils # (Auto) 0.9L, Lymphocytes # (Auto) 0.8L, Monocytes # (Auto) 0.3, Eosinophils # (Auto) 0.4, Basophils # (Auto) 0.0, Nucleated Red Blood Cells % (auto) 0.0, Anion Gap 6L, Glomerular Filtration Rate > 60.0, Blood Urea Nitrogen 8, Creatinine 1.05, Sodium Level 141, Potassium Level 3.7, Chloride Level 110H, Carbon Dioxide Level 25, Calcium Level 8.4L CBC/BMP Laboratory Tests 04/14/18 07:18 Red Blood Count 3.28 L, Mean Corpuscular Volume 100.0 H, Mean Corpuscular Hemoglobin 32.9, Mean Corpuscular Hemoglobin Concent 32.9, Red Cell Distribution Width 12.8, Neutrophils (%) (Auto) 36.8, Lymphocytes (%) (Auto) 32.4, Monocytes (%) (Auto) 13.4 H, Eosinophils (%) (Auto) 16.2 H, Basophils (%) (Auto) 0.8, Neutrophils # (Auto) 0.9 L, Lymphocytes # (Auto) 0.8 L, Monocytes # (Auto) 0.3, Eosinophils # (Auto) 0.4, Basophils # (Auto) 0.0, Calcium Level 8.4 L Microbiology Microbiology 04/11/18 Blood Culture - Preliminary, Resulted No Growth after 48 hours. All Specime... 04/11/18 Blood Culture - Preliminary, Resulted No Growth after 48 hours. All Specime... MARILU PARSONS MD Apr 14, 2018 09:39
[2018-04-14] MEDS ORDERED: KETOROLAC 30 MG/ML VIAL (J1885) IV ONE (10:00)
[2018-04-14] MEDS ORDERED: METOCLOPRAMIDE INJ 10MG/2ML VIAL (J2765) IV SCH (11:00)
[2018-04-14] MEDS ORDERED: KETOROLAC 30 MG/ML VIAL (J1885) IV SCH (12:00)
[2018-04-14 13:58] VITALS: BP 122/81
[2018-04-14] MEDS ORDERED: CIPR-249 PO (14:56)
[2018-04-14] MEDS ORDERED: FLAG500T PO (14:56)
== END 2018-04-14 15:53 | disposition home or self-care (01) | DRG 892 ==
LOC: M ED 11:38 → M ED INP 18:04 → M MS4PR 20:32
PROVIDERS: ADMIT Internal Medicine; ATTEND Internal Medicine Nephrology
DX: K52.9 Noninfective gastroenteritis and colitis, unspecified (principal); N18.3 Chronic kidney disease, stage 3 (moderate); B20 Human immunodeficiency virus [HIV] disease; Z79.899 Other long term (current) drug therapy

== ENCOUNTER → 2018-05-07 | Outpatient (REF) | payer OTHER ==
[~2018-05-07] MED LIST changes: +CIPR-249 PO; +FLAG500T PO; +IBUP-1022 PO
[2018-05-07 14:18] LABS: APPEARANCE, URINE CLEAR (CLEAR); BACTERIA, URINE AUTO NEGATIVE (NEGATIVE); BILIRUBIN, URINE AUTO NEGATIVE (NEGATIVE); BLOOD, URINE BLOOD NEGATIVE (NEGATIVE); COLOR, URINE YELLOW (YELLOW); GLUCOSE, URINE (UA) AUTO NEGATIVE (NEGATIVE); KETONE, URINE AUTO NEGATIVE (NEGATIVE); LEUKOCYTE ESTERASE, URINE AUTO NEGATIVE (NEGATIVE); NITRITE, URINE AUTO NEGATIVE (NEGATIVE); PROTEIN, URINE AUTO NEGATIVE (NEGATIVE); RBC, URINE AUTO 0 /HPF (0-3); SPECIFIC GRAVITY URINE AUTO 1.012 (1.002-1.035); SQUAMOUS EPITHELIAL CELL UR AU 0 /HPF (0-6); UROBILINOGEN, URINE AUTO 0.2 mg/dL (0.0-2.0); WBC, URINE AUTO 0 /HPF (0-3)
[2018-05-07 14:59] LABS: ALT/SGPT 23 U/L (12-78); BILIRUBIN,TOTAL 0.2 MG/DL (0.2-1.0); BLOOD UREA NITROGEN 12 MG/DL (7-18); CALCIUM LEVEL 9.1 MG/DL (8.5-10.1); CARBON DIOXIDE LEVEL 29 MEQ/L (21-32); CHLORIDE LEVEL 104 MEQ/L (98-107); CHOLESTEROL LEVEL 252 MG/DL (<200); CHOLESTEROL RISK RATIO 5.478 (<5); CREATININE FOR GFR 1.28 MG/DL (0.70-1.30); GLOMERULAR FILTRATION RATE > 60.0 (>56); GLUCOSE, FASTING 81 MG/DL (70-100); HDL CHOLESTEROL 46 MG/DL (>40); LDL CHOLESTEROL 171 MG/DL (<100); NON-HDL-C 206 MG/DL; POTASSIUM SERUM 4.6 MEQ/L (3.5-5.1); SODIUM LEVEL 139 MEQ/L (136-145); TOTAL PROTEIN 8.2 GM/DL (6.4-8.2); TRIGLYCERIDES LEVEL 174 MG/DL (<150)
[2018-05-08 12:50] LABS: CHLAMYDIA DNA AMPLIFICATION NEGATIVE (NEGATIVE); GC DNA AMPLIFICATION NEGATIVE (NEGATIVE)
[2018-05-09 00:07] LABS: % CD8 Pos Lymph 41.3 % (12.0-35.5); ABS Eosinophils 0.1 x10E3/uL (0.0-0.4); ABS Lymphs 1.9 x10E3/uL (0.7-3.1); ABS Monocytes 0.6 x10E3/uL (0.1-0.9); ABS Neutophils 1.6 x10E3/uL (1.4-7.0); Abs CD4 Helper 399 /uL (359-1519); Abs CD8 Suppres 785 /uL (109-897); CD4/CD8 Ratio 0.51 (0.92-3.72); Eosinophils 3 % (Not Estab.); HGB 13.8 g/dL (13.0-17.7); Immature Grans 0 % (Not Estab.); Lymphocytes 46 % (Not Estab.); MCH 32.4 pg (26.6-33.0); MCHC 32.9 g/dL (31.5-35.7); MCV 99 fL (79-97); Monocytes 13 % (Not Estab.); Neutrophils 38 % (Not Estab.); Platelets 242 x10E3/uL (150-379); RBC 4.26 x10E6/uL (4.14-5.80); WBC 4.2 x10E3/uL (3.4-10.8)
[2018-05-10 08:09] LABS: CHLAMYDIA PHARYNGEAL APTIMA Negative (Negative); GC PHARYNGEAL APTIMA Negative (Negative)
[2018-05-12 00:09] LABS: HIV-1 RNA PCR QUANT 2 LC550285 <20 copies/mL (.)
[2018-05-12 00:09] LABS: RPR Reactive (Non Reactive)
== END ==
LOC: M SFHCPLAZ 11:17
PROVIDERS: ATTEND Internal Medicine Infectious Disease
DX: B20 Human immunodeficiency virus [HIV] disease (principal); E78.00 Pure hypercholesterolemia, unspecified; A56.3 Chlamydial infection of anus and rectum

== ENCOUNTER → 2018-11-26 | Outpatient (REF) | payer OTHER ==
[2018-11-26 14:57] LABS: APPEARANCE, URINE CLEAR (CLEAR); BACTERIA, URINE AUTO NEGATIVE (NEGATIVE); BILIRUBIN, URINE AUTO NEGATIVE (NEGATIVE); BLOOD, URINE BLOOD NEGATIVE (NEGATIVE); COLOR, URINE YELLOW (YELLOW); GLUCOSE, URINE (UA) AUTO NEGATIVE (NEGATIVE); KETONE, URINE AUTO NEGATIVE (NEGATIVE); LEUKOCYTE ESTERASE, URINE AUTO NEGATIVE (NEGATIVE); NITRITE, URINE AUTO NEGATIVE (NEGATIVE); PROTEIN, URINE AUTO NEGATIVE (NEGATIVE); RBC, URINE AUTO 0 /HPF (0-3); SPECIFIC GRAVITY URINE AUTO 1.008 (1.002-1.035); SQUAMOUS EPITHELIAL CELL UR AU 0 /HPF (0-6); UROBILINOGEN, URINE AUTO 0.2 mg/dL (0.0-2.0); WBC, URINE AUTO 1 /HPF (0-3)
[2018-11-26 15:28] LABS: ALBUMIN 4.1 GM/DL (3.2-5.2); BILIRUBIN,TOTAL 0.8 MG/DL (0.2-1.0); CALCIUM LEVEL 9.5 MG/DL (8.5-10.1); CREATININE FOR GFR 1.47 MG/DL (0.70-1.30); GLOMERULAR FILTRATION RATE 53.3 (>56); POTASSIUM SERUM 4.8 MEQ/L (3.5-5.1); TOTAL PROTEIN 7.2 GM/DL (6.4-8.2)
[2018-11-26 15:57] LABS: CHLAMYDIA DNA AMPLIFICATION NEGATIVE (NEGATIVE); GC DNA AMPLIFICATION NEGATIVE (NEGATIVE)
[2018-12-01 00:11] LABS: % CD8 Pos Lymph 42.7 % (12.0-35.5); %CD4 Pos Lymphs 19.9 % (30.8-58.5); ABS Eosinophils 0.1 x10E3/uL (0.0-0.4); ABS Lymphs 1.2 x10E3/uL (0.7-3.1); ABS Monocytes 0.4 x10E3/uL (0.1-0.9); ABS Neutophils 2.4 x10E3/uL (1.4-7.0); Abs CD4 Helper 239 /uL (359-1519); Abs CD8 Suppres 512 /uL (109-897); CD4/CD8 Ratio 0.47 (0.92-3.72); Eosinophils 3 % (Not Estab.); HCT 40.7 % (37.5-51.0); HGB 14.1 g/dL (13.0-17.7); HIV-1 RNA PCR QUANT 2 LC550285 <20 copies/mL (.); Immature Grans 1 % (Not Estab.); Lymphocytes 28 % (Not Estab.); MCH 34.4 pg (26.6-33.0); MCHC 34.6 g/dL (31.5-35.7); MCV 99 fL (79-97); Monocytes 10 % (Not Estab.); Neutrophils 58 % (Not Estab.); Platelets 258 x10E3/uL (150-450); RDW 12.5 % (12.3-15.4); RPR Non Reactive (Non Reactive); WBC 4.1 x10E3/uL (3.4-10.8)
[2018-12-01 00:11] LABS: CHLAMYDIA PHARYNGEAL APTIMA Negative (Negative); GC PHARYNGEAL APTIMA Negative (Negative)
== END ==
LOC: M SFHCPLAZ 11:29
PROVIDERS: ATTEND Internal Medicine Infectious Disease
DX: B20 Human immunodeficiency virus [HIV] disease (principal); A56.3 Chlamydial infection of anus and rectum; Z86.19 Personal history of other infectious and parasitic diseases

== ENCOUNTER → 2019-07-26 | Outpatient (REF) | payer OTHER ==
[~2019-07-26] MED LIST changes: +CYCL-707 PO; -CYCL10TA PO
[2019-07-26 15:48] LABS: ALBUMIN 4.5 GM/DL (3.2-5.2); BILIRUBIN,TOTAL 0.5 MG/DL (0.2-1.0); CALCIUM LEVEL 9.6 MG/DL (8.5-10.1); CHOLESTEROL RISK RATIO 4.754 (<5); CREATININE FOR GFR 1.34 MG/DL (0.70-1.30); GLOMERULAR FILTRATION RATE 59.1 (>56); POTASSIUM SERUM 4.3 MEQ/L (3.5-5.1); TOTAL PROTEIN 8.1 GM/DL (6.4-8.2)
[2019-07-26 18:50] LABS: APPEARANCE, URINE CLEAR (CLEAR); BACTERIA, URINE AUTO NEGATIVE (NEGATIVE); BILIRUBIN, URINE AUTO NEGATIVE (NEGATIVE); BLOOD, URINE BLOOD NEGATIVE (NEGATIVE); COLOR, URINE STRAW (YELLOW); GLUCOSE, URINE (UA) AUTO NEGATIVE (NEGATIVE); KETONE, URINE AUTO NEGATIVE (NEGATIVE); LEUKOCYTE ESTERASE, URINE AUTO NEGATIVE (NEGATIVE); NITRITE, URINE AUTO NEGATIVE (NEGATIVE); PROTEIN, URINE AUTO NEGATIVE (NEGATIVE); RBC, URINE AUTO 0 /HPF (0-3); SPECIFIC GRAVITY URINE AUTO 1.006 (1.002-1.035); SQUAMOUS EPITHELIAL CELL UR AU 0 /HPF (0-6); UROBILINOGEN, URINE AUTO 0.2 mg/dL (0.0-2.0); WBC, URINE AUTO 0 /HPF (0-3)
[2019-07-26 20:12] LABS: CHLAMYDIA DNA AMPLIFICATION NEGATIVE (NEGATIVE); GC DNA AMPLIFICATION NEGATIVE (NEGATIVE)
[2019-07-29 00:07] LABS: CHLAMYDIA PHARYNGEAL APTIMA Negative (Negative); GC PHARYNGEAL APTIMA Negative (Negative)
[2019-07-29 16:08] LABS: % CD8 Pos Lymph 39.4 % (12.0-35.5); %CD4 Pos Lymphs 22.2 % (30.8-58.5); ABS Eosinophils 0.1 x10E3/uL (0.0-0.4); ABS Lymphs 1.2 x10E3/uL (0.7-3.1); ABS Monocytes 0.3 x10E3/uL (0.1-0.9); Abs CD4 Helper 266 /uL (359-1519); Abs CD8 Suppres 473 /uL (109-897); CD4/CD8 Ratio 0.56 (0.92-3.72); Eosinophils 3 % (Not Estab.); HCT 44.5 % (37.5-51.0); HGB 15.2 g/dL (13.0-17.7); HIV-1 RNA PCR QUANT 2 LC550285 <20 copies/mL (.); Immature Grans 0 % (Not Estab.); Lymphocytes 33 % (Not Estab.); MCH 34.7 pg (26.6-33.0); MCHC 34.2 g/dL (31.5-35.7); MCV 102 fL (79-97); Monocytes 8 % (Not Estab.); Neutrophils 56 % (Not Estab.); Platelets 231 x10E3/uL (150-450); RBC 4.38 x10E6/uL (4.14-5.80); RDW 11.1 % (11.6-15.4); RPR Reactive (Non Reactive); WBC 3.6 x10E3/uL (3.4-10.8)
== END ==
LOC: M SFHCPLAZ 12:45
PROVIDERS: ATTEND Internal Medicine Infectious Disease
DX: B20 Human immunodeficiency virus [HIV] disease (principal); Z86.19 Personal history of other infectious and parasitic diseases; E78.00 Pure hypercholesterolemia, unspecified; A56.3 Chlamydial infection of anus and rectum

== ENCOUNTER → 2019-12-23 | Outpatient (REF) | payer OTHER ==
[2019-12-23 16:04] LABS: ALBUMIN 4.4 GM/DL (3.2-5.2); BILIRUBIN,TOTAL 0.8 MG/DL (0.2-1.0); CALCIUM LEVEL 9.7 MG/DL (8.5-10.1); CHOLESTEROL RISK RATIO 5.083 (<5); CREATININE FOR GFR 1.48 MG/DL (0.70-1.30); GLOMERULAR FILTRATION RATE 52.7 (>56); POTASSIUM SERUM 4.6 MEQ/L (3.5-5.1); TOTAL PROTEIN 7.8 GM/DL (6.4-8.2)
[2019-12-26 10:07] LABS: % CD8 Pos Lymph 36.6 % (12.0-35.5); %CD4 Pos Lymphs 22.8 % (30.8-58.5); ABS Lymphs 1.8 x10E3/uL (0.7-3.1); ABS Monocytes 0.4 x10E3/uL (0.1-0.9); ABS Neutophils 2.3 x10E3/uL (1.4-7.0); Abs CD4 Helper 410 /uL (359-1519); Abs CD8 Suppres 659 /uL (109-897); CD4/CD8 Ratio 0.62 (0.92-3.72); Eosinophils 1 % (Not Estab.); HCT 43.3 % (37.5-51.0); HGB 15.2 g/dL (13.0-17.7); HIV-1 RNA PCR QUANT 2 LC550285 <20 copies/mL (.); Immature Grans 0 % (Not Estab.); Lymphocytes 40 % (Not Estab.); MCH 34.8 pg (26.6-33.0); MCHC 35.1 g/dL (31.5-35.7); MCV 99 fL (79-97); Monocytes 9 % (Not Estab.); Neutrophils 50 % (Not Estab.); Platelets 236 x10E3/uL (150-450); RBC 4.37 x10E6/uL (4.14-5.80); RDW 11.6 % (11.6-15.4); WBC 4.6 x10E3/uL (3.4-10.8)
== END ==
LOC: M SFHCPLAZ 13:51
PROVIDERS: ATTEND Internal Medicine Infectious Disease
DX: B20 Human immunodeficiency virus [HIV] disease (principal); E78.00 Pure hypercholesterolemia, unspecified

== ENCOUNTER → 2020-06-29 | Outpatient (REF) | payer OTHER ==
[2020-06-29 17:56] LABS: ALBUMIN 4.3 GM/DL (3.2-5.2); ALT/SGPT 32 U/L (12-78); BILIRUBIN,TOTAL 0.6 MG/DL (0.2-1.0); BLOOD UREA NITROGEN 14 MG/DL (7-18); CALCIUM LEVEL 9.4 MG/DL (8.5-10.1); CARBON DIOXIDE LEVEL 29 MEQ/L (21-32); CHLORIDE LEVEL 106 MEQ/L (98-107); CHOLESTEROL LEVEL 158 MG/DL (<200); CHOLESTEROL RISK RATIO 3.761 (<5); CREATININE FOR GFR 1.44 MG/DL (0.70-1.30); GLOMERULAR FILTRATION RATE 54.2 (>56); GLUCOSE, FASTING 88 MG/DL (70-100); HDL CHOLESTEROL 42 MG/DL (>40); HEPATITIS B SURFACE ANTIBODY POSITIVE (POSITIVE); LDL CHOLESTEROL 90 MG/DL (<100); NON-HDL-C 116 MG/DL; POTASSIUM SERUM 4.3 MEQ/L (3.5-5.1); SODIUM LEVEL 140 MEQ/L (136-145); TOTAL PROTEIN 7.3 GM/DL (6.4-8.2); TRIGLYCERIDES LEVEL 130 MG/DL (<150)
== END ==
LOC: M SFHCPLAZ 14:15
PROVIDERS: ATTEND Internal Medicine Infectious Disease
DX: B20 Human immunodeficiency virus [HIV] disease (principal); E78.00 Pure hypercholesterolemia, unspecified; Z86.19 Personal history of other infectious and parasitic diseases

== ENCOUNTER → 2020-12-21 | Outpatient (CLI) | payer OTHER ==
[2020-12-21 18:36] LABS: ALBUMIN 4.2 GM/DL (3.2-5.2); BILIRUBIN,TOTAL 0.6 MG/DL (0.2-1.0); CALCIUM LEVEL 10.1 MG/DL (8.5-10.1); CREATININE FOR GFR 1.44 MG/DL (0.70-1.30); GLOMERULAR FILTRATION RATE 54.2 (>56); POTASSIUM SERUM 4.2 MEQ/L (3.5-5.1); TOTAL PROTEIN 7.4 GM/DL (6.4-8.2)
== END ==
LOC: M PLALAB 14:15
PROVIDERS: ATTEND Internal Medicine Infectious Disease
DX: B20 Human immunodeficiency virus [HIV] disease (principal)

== ENCOUNTER → 2021-05-21 | Outpatient (CLI) | payer OTHER ==
[2021-05-21 15:59] LABS: ALBUMIN 3.6 GM/DL (3.2-5.2); BILIRUBIN,TOTAL 0.4 MG/DL (0.2-1.0); CALCIUM LEVEL 9.5 MG/DL (8.5-10.1); CREATININE FOR GFR 1.44 MG/DL (0.70-1.30); GLOMERULAR FILTRATION RATE 54.2 (>56); POTASSIUM SERUM 4.7 MEQ/L (3.5-5.1); TOTAL PROTEIN 8.4 GM/DL (6.4-8.2)
[2021-05-21 19:11] LABS: GC DNA AMPLIFICATION NEGATIVE (NEGATIVE)
== END ==
LOC: M PLALAB 13:42
PROVIDERS: ATTEND Internal Medicine Infectious Disease
DX: B20 Human immunodeficiency virus [HIV] disease (principal)

== ENCOUNTER → 2021-05-22 | Outpatient (REF) | payer OTHER | LOC: M SFHCPLAZ 12:33 | PROVIDERS: ATTEND Internal Medicine Infectious Disease | DX: R10.30 Lower abdominal pain, unspecified (principal) ==

== ENCOUNTER → 2021-12-11 | Outpatient (CLI) | payer OTHER ==
[2021-12-11 15:02] LABS: CREATININE FOR GFR 1.44 MG/DL (0.70-1.30); POTASSIUM SERUM 4.1 MEQ/L (3.5-5.1)
[2021-12-11 15:03] LABS: ALBUMIN 4.5 GM/DL (3.2-5.2); BILIRUBIN,TOTAL 0.8 MG/DL (0.2-1.0); CALCIUM LEVEL 9.6 MG/DL (8.5-10.1); CHOLESTEROL RISK RATIO 2.571 (<5); TOTAL PROTEIN 7.9 GM/DL (6.4-8.2)
[2021-12-11 16:16] LABS: HEPATITIS C VIRUS ABY INDEX 0.1 INDEX (<0.8)
[2021-12-13 05:07] LABS: %CD4 Pos Lymphs 17.4 % (30.8-58.5); ABS Lymphs 1.7 x10E3/uL (0.7-3.1); ABS Monocytes 0.4 x10E3/uL (0.1-0.9); ABS Neutophils 2.2 x10E3/uL (1.4-7.0); Abs CD4 Helper 296 /uL (359-1519); Abs CD8 Suppres 629 /uL (109-897); CD4/CD8 Ratio 0.47 (0.92-3.72); Eosinophils 1 % (Not Estab.); HCT 42.4 % (37.5-51.0); HGB 15.2 g/dL (13.0-17.7); HIV-1 RNA PCR QUANT 2 LC550285 <20 copies/mL (.); Immature Grans 0 % (Not Estab.); Lymphocytes 39 % (Not Estab.); MCH 34.3 pg (26.6-33.0); MCHC 35.8 g/dL (31.5-35.7); MCV 96 fL (79-97); Monocytes 8 % (Not Estab.); Neutrophils 52 % (Not Estab.); Platelets 191 x10E3/uL (150-450); RBC 4.43 x10E6/uL (4.14-5.80); RDW 12.1 % (11.6-15.4); WBC 4.3 x10E3/uL (3.4-10.8)
== END ==
LOC: M PLALAB 10:51
PROVIDERS: ATTEND Internal Medicine Infectious Disease
DX: B20 Human immunodeficiency virus [HIV] disease (principal); E78.00 Pure hypercholesterolemia, unspecified

== ENCOUNTER → 2022-05-23 | Outpatient (CLI) | payer OTHER ==
[2022-05-23 11:19] LABS: ALBUMIN 3.9 G/DL (3.2-5.2); CALCIUM LEVEL 9.4 MG/DL (8.5-10.1); CREATININE FOR GFR 1.46 MG/DL (0.70-1.30); GLOMERULAR FILTRATION RATE 53.2 (>56); POTASSIUM SERUM 4.4 MMOL/L (3.5-5.1); TOTAL PROTEIN 6.9 G/DL (5.7-8.2)
[2022-05-23 16:46] LABS: GC DNA AMPLIFICATION NEGATIVE (NEGATIVE)
[2022-05-23 16:47] LABS: GC DNA AMPLIFICATION NEGATIVE (NEGATIVE)
[2022-05-25 04:07] LABS: % CD8 Pos Lymph 40.5 % (12.0-35.5); %CD4 Pos Lymphs 21.9 % (30.8-58.5); ABS Eosinophils 0.1 x10E3/uL (0.0-0.4); ABS Lymphs 1.3 x10E3/uL (0.7-3.1); ABS Monocytes 0.3 x10E3/uL (0.1-0.9); Abs CD4 Helper 285 /uL (359-1519); Abs CD8 Suppres 527 /uL (109-897); CD4/CD8 Ratio 0.54 (0.92-3.72); Eosinophils 4 % (Not Estab.); HCT 36.3 % (37.5-51.0); HGB 12.2 g/dL (13.0-17.7); HIV-1 RNA PCR QUANT 2 LC550285 <20 copies/mL (.); Immature Grans 0 % (Not Estab.); Lymphocytes 35 % (Not Estab.); MCH 33.8 pg (26.6-33.0); MCHC 33.6 g/dL (31.5-35.7); MCV 101 fL (79-97); Monocytes 8 % (Not Estab.); Neutrophils 52 % (Not Estab.); Platelets 199 x10E3/uL (150-450); RBC 3.61 x10E6/uL (4.14-5.80); RDW 11.8 % (11.6-15.4); RPR Reactive (Non Reactive); WBC 3.7 x10E3/uL (3.4-10.8)
== END ==
LOC: M PLALAB 08:51
PROVIDERS: ATTEND Internal Medicine Infectious Disease
DX: B20 Human immunodeficiency virus [HIV] disease (principal); Z86.19 Personal history of other infectious and parasitic diseases; Z11.3 Encounter for screening for infections with a predominantly sexual mode of transmission; K62.82 Dysplasia of anus

== ENCOUNTER → 2022-09-12 | Outpatient (CLI) | payer OTHER ==
[2022-09-12 17:27] LABS: GC DNA AMPLIFICATION NEGATIVE (NEGATIVE)
[2022-09-16 14:13] LABS: % CD8 Pos Lymph 36.1 % (12.0-35.5); %CD4 Pos Lymphs 20.3 % (30.8-58.5); ABS Eosinophils 0.1 x10E3/uL (0.0-0.4); ABS Lymphs 2.4 x10E3/uL (0.7-3.1); ABS Monocytes 0.5 x10E3/uL (0.1-0.9); Abs CD4 Helper 487 /uL (359-1519); Abs CD8 Suppres 866 /uL (109-897); CD4/CD8 Ratio 0.56 (0.92-3.72); Eosinophils 2 % (Not Estab.); HCT 40.3 % (37.5-51.0); HGB 13.7 g/dL (13.0-17.7); HIV-1 RNA PCR QUANT 2 LC550285 <20 copies/mL (.); Immature Grans 0 % (Not Estab.); Lymphocytes 40 % (Not Estab.); MCH 32.7 pg (26.6-33.0); MCV 96 fL (79-97); Monocytes 9 % (Not Estab.); Neutrophils 49 % (Not Estab.); Platelets 209 x10E3/uL (150-450); RBC 4.19 x10E6/uL (4.14-5.80)
== END ==
LOC: M PLALAB 12:52
PROVIDERS: ATTEND Internal Medicine Infectious Disease
DX: B20 Human immunodeficiency virus [HIV] disease (principal); A51.5 Early syphilis, latent

== ENCOUNTER → 2022-09-18 | Outpatient (REF) | payer OTHER ==
[2022-09-20 14:09] LABS: RPR Reactive (Non Reactive)
== END ==
LOC: M LAB REF 16:41
PROVIDERS: ATTEND Internal Medicine Infectious Disease
DX: B20 Human immunodeficiency virus [HIV] disease (principal)

== ENCOUNTER → 2023-07-25 | Outpatient (CLI) | payer MEDICARE, OTHER, SELFPAY ==
[~2023-07-25] MED LIST changes: +ATOR40TA75 PO; +BIKT1TAB PO; +ESOM40CA35 PO
[2023-07-25 15:30] LABS: ALKALINE PHOSPHATASE 82 U/L (46-116); ALT/SGPT 23 U/L (7.0-40); AST/SGOT 26 U/L (<34); BLOOD UREA NITROGEN 12 MG/DL (9-23); CALCIUM LEVEL 9.3 MG/DL (8.5-10.1); CARBON DIOXIDE LEVEL 28 MMOL/L (20-31); CHLORIDE LEVEL 107 MMOL/L (98-107); CHOLESTEROL LEVEL 112 MG/DL (<200); CHOLESTEROL RISK RATIO 2.71 (<5); CREATININE FOR GFR 1.28 MG/DL (0.70-1.30); GLOMERULAR FILTRATION RATE > 60.0 (>56); GLUCOSE, FASTING 96 MG/DL (60-100); HDL CHOLESTEROL 41.3 MG/DL (>40); LDL CHOLESTEROL 56.5 MG/DL (<100); NON-HDL-C 70.7 MG/DL; POTASSIUM SERUM 4.3 MMOL/L (3.5-5.1); SODIUM LEVEL 140 MMOL/L (136-145); TOTAL PROTEIN 6.9 G/DL (5.7-8.2); TRIGLYCERIDES LEVEL 71 MG/DL (<150)
[2023-07-25 16:10] LABS: HEPATITIS C VIRUS ABY INDEX 0.22 INDEX (<0.8)
[2023-07-25 16:47] LABS: GC DNA AMPLIFICATION NEGATIVE (NEGATIVE)
[2023-07-25 16:48] LABS: GC DNA AMPLIFICATION POSITIVE (NEGATIVE)
[2023-07-29 18:12] LABS: % CD8 Pos Lymph 36.6 % (12.0-35.5); %CD4 Pos Lymphs 22.1 % (30.8-58.5); ABS Eosinophils 0.1 x10E3/uL (0.0-0.4); ABS Lymphs 1.9 x10E3/uL (0.7-3.1); ABS Monocytes 0.5 x10E3/uL (0.1-0.9); ABS Neutophils 2.8 x10E3/uL (1.4-7.0); Abs CD4 Helper 420 /uL (359-1519); Abs CD8 Suppres 695 /uL (109-897); Eosinophils 1 % (Not Estab.); HCT 37.5 % (37.5-51.0); HGB 12.5 g/dL (13.0-17.7); HIV-1 RNA PCR QUANT 2 LC55028X <20 copies/mL (.); Immature Grans 0 % (Not Estab.); Lymphocytes 36 % (Not Estab.); MCH 33.9 pg (26.6-33.0); MCHC 33.3 g/dL (31.5-35.7); MCV 102 fL (79-97); Monocytes 9 % (Not Estab.); Neutrophils 54 % (Not Estab.); Platelets 185 x10E3/uL (150-450); RBC 3.69 x10E6/uL (4.14-5.80); RDW 11.8 % (11.6-15.4); WBC 5.3 x10E3/uL (3.4-10.8)
== END ==
LOC: M PLALAB 11:59
PROVIDERS: ATTEND Internal Medicine Infectious Disease
DX: B20 Human immunodeficiency virus [HIV] disease (principal); E78.00 Pure hypercholesterolemia, unspecified; Z11.3 Encounter for screening for infections with a predominantly sexual mode of transmission

== ENCOUNTER 2023-10-13 12:55 | Outpatient (CLI) | payer OTHER ==
[~2023-10-13] VITALS: Ht 182.9 cm; Wt 77.2 kg
[~2023-10-13 12:55] MED LIST changes: -DOLU1TAB PO
[2023-10-13 13:00] VITALS: BP 118/82; O2SAT 97
[2023-10-13] MEDS ORDERED: DOLU1TAB PO (13:22)
[2023-10-13] MEDS: DALBAVANCIN 1,500 MG in D5W 250 ML IV ONE (14:15)
[2023-10-13 15:11] VITALS: BP 118/79; O2SAT 98
== END 2023-10-13 15:15 ==
LOC: M INFU 12:55
PROVIDERS: ATTEND Internal Medicine Infectious Disease
DX: L03.115 Cellulitis of right lower limb (principal)
CPT/HCPCS: 96365; J0875

== ENCOUNTER → 2023-10-13 | Outpatient (CLI) | payer OTHER ==
[~2023-10-13] MED LIST changes: +DOLU1TAB PO
[2023-10-13 12:40] LABS: BASO % 0.1 % (0.0-1.0); EOS # 0.1 10^3/uL (0.0-0.5); EOS % 0.6 % (0.0-3.0); HEMATOCRIT 41.1 % (42.0-52.0); HEMOGLOBIN 13.6 g/dl (13.5-17.5); LYMPH # 1.6 10^3/uL (1.5-5.0); LYMPH % 19.7 % (24.0-44.0); MEAN CORPUSCULAR HEMOGLOBIN 34.2 pg (27.0-33.0); MEAN CORPUSCULAR HGB CONC 33.1 g/dl (32.0-36.5); MEAN CORPUSCULAR VOLUME 103.3 fl (80.0-96.0); MONO # 0.8 10^3/uL (0.0-0.8); MONO % 9.5 % (2.0-8.0); NEUTROPHILS # 5.5 10^3/uL (1.5-8.5); NEUTROPHILS % 69.8 % (36.0-66.0); PLATELET COUNT, AUTOMATED 189 10^3/uL (150-450); RED BLOOD COUNT 3.98 10^6/uL (4.30-6.10); WHITE BLOOD COUNT 7.9 10^3/uL (4.0-10.0)
[2023-10-13 12:46] LABS: ERYTHROCYTE SEDIMENTATION RATE 36 mm/hr (0-20)
[2023-10-13 13:10] LABS: ALBUMIN 3.6 G/DL (3.2-5.2); ALKALINE PHOSPHATASE 83 U/L (46-116); ALT/SGPT 32 U/L (7.0-40); AST/SGOT 29 U/L (<34); BILIRUBIN,TOTAL 0.6 MG/DL (0.3-1.2); BLOOD UREA NITROGEN 12 MG/DL (9-23); CALCIUM LEVEL 9.1 MG/DL (8.5-10.1); CARBON DIOXIDE LEVEL 30 MMOL/L (20-31); CHLORIDE LEVEL 105 MMOL/L (98-107); CREATININE FOR GFR 1.24 MG/DL (0.70-1.30); GLOMERULAR FILTRATION RATE > 60.0 (>56); GLUCOSE, FASTING 86 MG/DL (60-100); SODIUM LEVEL 137 MMOL/L (136-145); TOTAL PROTEIN 7.1 G/DL (5.7-8.2)
[2023-10-13 14:25] LABS: GC DNA AMPLIFICATION NEGATIVE (NEGATIVE)
[2023-10-13 14:26] LABS: GC DNA AMPLIFICATION NEGATIVE (NEGATIVE)
[2023-10-14 10:48] LABS: RPR REACTIVE (NON-REACTIVE)
[2023-10-15 14:12] LABS: TREPONEMA PALLIDUM ANTIBODIES POSITIVE (NEGATIVE)
== END ==
LOC: M PLALAB 11:14
PROVIDERS: ATTEND Internal Medicine Infectious Disease
DX: L03.115 Cellulitis of right lower limb (principal); R51.9 Headache, unspecified; R21 Rash and other nonspecific skin eruption; A51.5 Early syphilis, latent; Z11.3 Encounter for screening for infections with a predominantly sexual mode of transmission

== ENCOUNTER → 2023-10-13 | Outpatient (CLI) | payer OTHER | LOC: M RAD 15:27 | PROVIDERS: ATTEND Internal Medicine Infectious Disease | DX: L03.115 Cellulitis of right lower limb (principal); R59.0 Localized enlarged lymph nodes ==

== ENCOUNTER → 2023-11-03 | Outpatient (CLI) | payer OTHER ==
[~2023-11-03] MED LIST changes: +DOLU1TAB PO
[2023-11-03 12:53] LABS: ALBUMIN 4.1 G/DL (3.2-5.2); BILIRUBIN,TOTAL 0.3 MG/DL (0.3-1.2); CALCIUM LEVEL 9.5 MG/DL (8.5-10.1); CHOLESTEROL RISK RATIO 2.57 (<5); CREATININE FOR GFR 1.39 MG/DL (0.70-1.30); GLOMERULAR FILTRATION RATE 55.9 (>56); HDL CHOLESTEROL 47.4 MG/DL (>40); NON-HDL-C 74.6 MG/DL; POTASSIUM SERUM 4.7 MMOL/L (3.5-5.1); TOTAL PROTEIN 7.4 G/DL (5.7-8.2)
[2023-11-04 13:07] LABS: % CD4+ LYMPHS 18.8 % (30.8-58.5); ABSOLUTE CD4 HELPER 376 /uL (359-1519); BASOPHILS 1 % (Not Estab.); EOSINOPHILS 3 % (Not Estab.); EOSINOPHILS ABSOLUTE 0.1 x10E3/uL (0.0-0.4); HCT 41.2 % (37.5-51.0); HGB 13.8 g/dL (13.0-17.7); LYMPHOCYTES 53 % (Not Estab.); MCH 33.8 pg (26.6-33.0); MCHC 33.5 g/dL (31.5-35.7); MCV 101 fL (79-97); MONOCYTES 10 % (Not Estab.); MONOCYTES ABSOLUTE 0.4 x10E3/uL (0.1-0.9); NEUTROPHILS 33 % (Not Estab.); NEUTROPHILS ABSOLUTE 1.2 x10E3/uL (1.4-7.0); PLT 201 x10E3/uL (150-450); RBC 4.08 x10E6/uL (4.14-5.80); RDW 11.7 % (11.6-15.4); WBC 3.7 x10E3/uL (3.4-10.8)
[2023-11-04 13:27] LABS: RPR REACTIVE (NON-REACTIVE)
[2023-11-05 13:17] LABS: TREPONEMA PALLIDUM ANTIBODIES POSITIVE (NEGATIVE)
[2023-11-06 13:58] LABS: HIV-1 RNA PCR QUANT 2 <20 DETECTED copies/mL (NOT DETECTED); HIV-1 RNA PCR QUANT 3 <1.30 DETECTED (NOT DETECTED)
== END ==
LOC: M PLALAB 11:09
PROVIDERS: ATTEND Internal Medicine Infectious Disease
DX: B20 Human immunodeficiency virus [HIV] disease (principal)

== ENCOUNTER → 2024-06-15 | Outpatient (CLI) | payer OTHER ==
[2024-06-15 15:35] LABS: ALBUMIN 4.2 G/DL (3.2-5.2); BILIRUBIN,TOTAL 0.6 MG/DL (0.3-1.2); CALCIUM LEVEL 9.4 MG/DL (8.5-10.1); CREATININE FOR GFR 1.31 MG/DL (0.70-1.30); GLOMERULAR FILTRATION RATE 62.7 (>56); TOTAL PROTEIN 7.2 G/DL (5.7-8.2)
[2024-06-15 20:56] LABS: GC DNA AMPLIFICATION NEGATIVE (NEGATIVE)
== END ==
LOC: M PLALAB 12:09
PROVIDERS: ATTEND Internal Medicine Infectious Disease
DX: A51.5 Early syphilis, latent (principal)

== ENCOUNTER → 2024-07-13 | Outpatient (CLI) | payer OTHER ==
[2024-07-13 14:49] LABS: RSV AMPLIFICATION NEGATIVE (NEGATIVE)
== END ==
LOC: M PLAIMG 10:48
PROVIDERS: ATTEND Internal Medicine Infectious Disease
DX: R06.09 Other forms of dyspnea (principal); J11.1 Influenza due to unidentified influenza virus with other respiratory manifestations

== ENCOUNTER → 2024-12-21 | Outpatient (CLI) | payer OTHER ==
[~2024-12-21] MED LIST changes: -IBUP-1022 PO; +IBUP600T42 PO
[2024-12-21 15:55] LABS: ALT/SGPT 21.0 U/L (7.0-40); AST/SGOT 33.0 U/L (<34); CALCIUM LEVEL 9.4 MG/DL (8.5-10.1); CARBON DIOXIDE LEVEL 28.0 MMOL/L (20-31); CHLORIDE LEVEL 104.0 MMOL/L (98-107); CREATININE FOR GFR 1.42 MG/DL (0.70-1.30); GLOMERULAR FILTRATION RATE 56.9 (>56); POTASSIUM SERUM 4.1 MMOL/L (3.5-5.1); SODIUM LEVEL 141.0 MMOL/L (136-145)
[2024-12-23 12:33] LABS: RPR REACTIVE (NON-REACTIVE)
[2024-12-23 15:12] LABS: RPR TITER 1:4 (<1:1)
[2024-12-24 00:57] LABS: % CD4 19 % (30-61); %CD8 36 % (12-42); ABSOLUTE CD4 CELLS 318 cells/uL (490-1740); ABSOLUTE CD8 CELLS 590 cells/uL (180-1170); ABSOLUTE LYMPHOCYTES 1647 cells/uL (850-3900); CD4 CD8 RATIO 0.54 (0.86-5.00)
[2024-12-24 11:03] LABS: HIV-1 RNA PCR QUANT 2 NOT DETECTED copies/mL (NOT DETECTED); HIV-1 RNA PCR QUANT 3 NOT DETECTED (NOT DETECTED)
[2024-12-24 13:07] LABS: TREPONEMA PALLIDUM ANTIBODIES POSITIVE (NEGATIVE)
== END ==
LOC: M PLALAB 13:10
PROVIDERS: ATTEND Internal Medicine Infectious Disease
DX: B20 Human immunodeficiency virus [HIV] disease (principal); A51.5 Early syphilis, latent